=== PATIENT | female | born 2000 | race Caucasian/White ===

== ENCOUNTER 2023-11-07 00:06 | Emergency (ER) | payer MEDICAID ==
[~2023-11-07] VITALS: Ht 165.1 cm; Wt 78.0 kg
[2023-11-07 00:21] VITALS: BP 116/76; PULSE 90; RESP 16; O2SAT 99
[2023-11-07] MEDS ORDERED: AMOX500C2 PO (01:10)
== END 2023-11-07 01:16 | disposition home or self-care (01) ==
LOC: ER 00:07
DX: K02.9 Dental caries, unspecified (principal); K08.89 Other specified disorders of teeth and supporting structures; Z79.2 Long term (current) use of antibiotics
CPT/HCPCS: 99283

== ENCOUNTER 2023-12-30 14:55 | Emergency (ER) | payer MEDICAID | END 2023-12-30 18:32 | disposition left against medical advice (07) | LOC: ER 14:55 | DX: K04.7 Periapical abscess without sinus (principal); Z53.21 Procedure and treatment not carried out due to patient leaving prior to being seen by health care provider ==